=== PATIENT | male | born 1985 | race Caucasian/White ===

== ENCOUNTER 2016-06-28 12:07 | Emergency (ER) | payer MEDICAID ==
[~2016-06-28] VITALS: Ht 188 cm; Wt 129.1 kg
[2016-06-28 12:11] VITALS: BP 144/82
== END 2016-06-28 12:58 | disposition home or self-care (01) ==
LOC: ED 12:52
DX: N48.22 Cellulitis of corpus cavernosum and penis (principal); B37.2 Candidiasis of skin and nail
CPT/HCPCS: 99283

== ENCOUNTER 2016-11-24 10:39 | Emergency (ER) | payer MEDICAID ==
[~2016-11-24] VITALS: Ht 188 cm; Wt 133.7 kg
[2016-11-24 10:41] VITALS: BP 151/83
== END 2016-11-24 11:43 | disposition home or self-care (01) ==
LOC: ED 11:32
DX: J02.0 Streptococcal pharyngitis (principal); Z88.0 Allergy status to penicillin
CPT/HCPCS: 99283

== ENCOUNTER 2020-06-19 12:26 | Emergency (ER) | payer SELFPAY ==
[~2020-06-19] VITALS: Ht 190.5 cm; Wt 126.9 kg
[2020-06-19] MEDS ORDERED: SODIUM CHLORIDE 0.9% 1,000ML IVBOLUS ONE ×2 (13:30→14:30)
[2020-06-19] MEDS ORDERED: ONDANSETRON 2MG/ML, 2ML IVPush ONE (13:30)
[2020-06-19 13:31] LABS: BASOPHILS % (AUTO) 0 % (0-1); EOSINOPHILS % (AUTO) 0 % (1-7); LYMPHOCYTES % (AUTO) 13 % (22-44); MEAN CORPUSCULAR HEMOGLOBIN 31.5 pg (27.5-34.5); MEAN CORPUSCULAR HGB CONC 35.1 g/dL (33.2-36.2); MEAN PLATELET VOLUME 8.7 fL (7.4-10.4); MONOCYTES % (AUTO) 11 % (2-9); NEUTROPHILS % (AUTO) 76 % (42-75); PLATELET COUNT 294 x10^3/uL (130-400); RED CELL DISTRIBUTION WIDTH 12.7 % (9.4-14.8)
[2020-06-19 13:32] LABS: MD NO
[2020-06-19 13:34] LABS: ALANINE AMINOTRANSFERASE 58 U/L (12-78); ALBUMIN 4.8 g/dL (3.4-5.0); ANION GAP 8 mmol/L (5-15); CALCIUM 9.9 mg/dL (8.5-10.1); CHLORIDE 92 mmol/L (98-107); CREATININE 1.57 mg/dL (0.7-1.3)
[2020-06-19 13:37] LABS: ALKALINE PHOSPHATASE 120 U/L (45-117); BILIRUBIN,TOTAL 1.6 mg/dL (0.2-1.0); TOTAL PROTEIN 8.7 g/dL (6.4-8.2)
[2020-06-19] MEDS ORDERED: ONDANSETRON 2MG/ML, 2ML ONE (14:02)
[2020-06-19 14:07] VITALS: BP 149/91
--- NOTE | 2020-06-19 14:09 | NUR ---
IV NS BOLUS COMPLETED, ZOFRAN GIVEN PER ERP ORDER. VSS/UPDATED IN COMPUTER. LABS BACK, PT FOR RECHECK. CALL LIGHT WITHIN REACH.
--- NOTE | 2020-06-19 14:20 | NUR ---
2ND LITER NS INFUSING. NO VOMITING FOR THREE HOURS, NAUSEA DECREASED FOLLOWING ZOFRAN.
[2020-06-19] MEDS ORDERED: HYDROcodone/APAP 5/325 TABLET ONE (14:41)
--- NOTE | 2020-06-19 14:46 | NUR ---
NORCO GIVEN PER ERP ORDER FOR 8/10 MID ABD PAIN. 2ND LITER NS COMPLETED. PT FOR RECHECK.
[2020-06-19] MEDS ORDERED: HYDROcodone/APAP 5/325 TABLET PO ONE (15:00)
--- NOTE | 2020-06-19 15:00 | NUR ---
REPORT TO MOI MARTÍNEZ, TRANSFER OF CARE AT THIS TIME.
== END 2020-06-19 15:26 | disposition home or self-care (01) ==
LOC: ED 14:00
DX: M79.10 Myalgia, unspecified site (principal); R11.2 Nausea with vomiting, unspecified; E86.0 Dehydration; F17.200 Nicotine dependence, unspecified, uncomplicated
CPT/HCPCS: 36415; 80053; 83690; 85025; 96374; 99283; J2405; J7030